=== PATIENT | male | born 1980 | race Two or more races ===

== ENCOUNTER 2024-03-31 15:01 | Emergency (ER) | payer OTHER ==
[~2024-03-31] VITALS: Ht 167.6 cm; Wt 168.8 kg
[2024-03-31 15:44] VITALS: BP 157/107; PULSE 73; RESP 17; TEMP 98.3; O2SAT 97
[2024-03-31 16:01] LABS: Amphetamine Screen, Urine Neg (NEGATIVE); Barbiturate Scree,Urine Neg (NEGATIVE); Benzodiazephine Screen, Urine Neg (NEGATIVE); Cannabinoid Screen, Urine Neg (NEGATIVE); Cocaine Screen, Urine Neg (NEGATIVE); Opiate Scree,Urine Neg (NEGATIVE); Phencyclidine Screen, Urine Neg (NEGATIVE)
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
== END 2024-03-31 16:32 | disposition home or self-care (01) ==
LOC: ER 15:01
DX: Z04.1 Encounter for examination and observation following transport accident (principal); Z88.1 Allergy status to other antibiotic agents; Z88.5 Allergy status to narcotic agent; Z79.899 Other long term (current) drug therapy
CPT/HCPCS: 80307